=== PATIENT | male | born 2000 | race American Indian/Alaskan Native ===

== ENCOUNTER 2024-12-26 23:53 | Emergency (ER) | payer BC ==
[2024-12-27] MEDS: Iopamidol 612 MG/ML 100 ML Bottle IV SCH (01:09)
[2024-12-27] MEDS: Sodium Chloride 0.9% 10 ML Syringe FLUSH ONE (01:10)
[2024-12-27] MEDS: Ondansetron 4 MG/2 ML SDV IVPUSH ONE ×2 (01:14→07:34)
[2024-12-27] MEDS: Ketorolac 30 MG/ML SDV IVPUSH ONE (07:34)
== END 2024-12-27 07:54 | disposition home or self-care (01) ==
LOC: JP.ED 23:53
DX: S02.2XXA Fracture of nasal bones, initial encounter for closed fracture (principal); S12.8XXA Fracture of other parts of neck, initial encounter; Z88.0 Allergy status to penicillin; Y04.2XXA Assault by strike against or bumped into by another person, initial encounter; Y92.59 Other trade areas as the place of occurrence of the external cause; F10.231 Alcohol dependence with withdrawal delirium; Y90.0 Blood alcohol level of less than 20 mg/100 ml
CPT/HCPCS: 70450; 70486; 70491; 96374; 96375; 96376; 99283; 99284; J1885; J2405; Q9967; 36415; 80305-QW; 80307; 99285; A9270-GY

== ENCOUNTER 2024-12-27 10:01 | Emergency (ER) | payer BC | END 2024-12-27 10:50 | disposition home or self-care (01) | LOC: JP.ED 10:01 | DX: S00.83XA Contusion of other part of head, initial encounter (principal); S12.8XXA Fracture of other parts of neck, initial encounter; Z88.0 Allergy status to penicillin; Y09 Assault by unspecified means | CPT/HCPCS: 99283; A9270 ==

== ENCOUNTER 2024-12-27 12:20 | Emergency (ER) | payer BC ==
[2024-12-27 16:17] LABS: AMPHETAMINES SCREEN, URINE NEGATIVE (NEGATIVE); METHADONE SCREEN, URINE NEGATIVE (NEGATIVE); METHAMPHETAMINES SCREEN, URINE NEGATIVE (NEGATIVE); OXYCODONE SCREEN,URINE NEGATIVE (NEGATIVE); PROPOXYPHENE SCREEN,URINE NEGATIVE (NEGATIVE); THC SCREEN,URINE 50 NG/ML PRESUMPTIVE POSITIVE (NEGATIVE)
[2024-12-27] MEDS: LORazepam 2 MG/ML SDV IVPUSH ONE (16:31)
== END 2024-12-27 17:50 ==
LOC: JP.ED 12:20
DX: F10.231 Alcohol dependence with withdrawal delirium (principal); Z88.0 Allergy status to penicillin; Y90.0 Blood alcohol level of less than 20 mg/100 ml
CPT/HCPCS: 36415; 80305; 80307; 99285; A9270